=== PATIENT | female | born 1955 | race African-American/Black ===

== ENCOUNTER 2018-08-14 07:04 | Inpatient (IN) | payer OTHER, MEDICAID ==
[~2018-08-14] VITALS: Ht 162.6 cm; Wt 53.5 kg
[2018-08-14] MEDS ORDERED: KETOROLAC 30MG/ML VIAL IV STA (08:13)
[2018-08-14] MEDS ORDERED: ONDANSETRON HCL 4MG/2ML INJ IV STA (08:13)
[2018-08-14] MEDS ORDERED: SODIUM CHLORIDE 0.9% 1,000 ML IV ONE (08:13)
[2018-08-14 08:33] LABS: BASOPHILS % 0.8 % (0.0-2.0); EOSINOPHILS % 3.6 % (0.0-5.0); HEMATOCRIT. 40.5 % (36.0-48.0); LYMPHOCYTES % 37.6 % (20.0-50.0); MEAN CORPUSCULAR HEMOGLOBIN 30.5 pg (28.0-32.0); MEAN CORPUSCULAR VOLUME 88.2 fL (81.0-99.0); MEAN PLATELET VOLUME 7.8 fl (7.4-10.4); MONOCYTES % 6.5 % (2.0-8.0); NEUTROPHILS % 51.5 % (40.0-76.0); PLATELET 305 x1000/uL (130-400); RED BLOOD CELL COUNT 4.59 mill/uL (4.2-5.4); RED CELL DISTRIBUTION WIDTH 13.4 % (11.6-14.6)
[2018-08-14 08:39] LABS: CHLORIDE 107 mEq/L (98-107)
[2018-08-14 08:54] LABS: CLARITY URINE TURBID (CLEAR); COLOR URINE YELLOW (YELLOW); KETONES URINE NEGATIVE (NEGATIVE); LEUKOCYTE ESTERASE URINE NEGATIVE (NEGATIVE); NITRITE URINE NEGATIVE (NEGATIVE); OCCULT BLOOD URINE NEGATIVE (NEGATIVE); PH URINE 7.5 (4.5-8.0); PROTEIN URINE NEGATIVE (NEGATIVE); SPECIFIC GRAVITY URINE 1.014 (1.005-1.030); UROBILINOGEN URINE 0.2 E.U./dL (0.2-1.0)
[2018-08-14] MEDS ORDERED: MORPHINE SULFATE 4 MG/ML CPJ (NOT FOR IM USE) IV STA (11:23)
[2018-08-14] MEDS ORDERED: IBUPROFEN 600MG TABLET PO PRN (13:45)
[2018-08-14] MEDS ORDERED: DIATR MEGLU/DIATRIZOATE SOLN 30ML ONE (16:48)
[2018-08-14] MEDS ORDERED: LORAZEPAM 0.5MG TABLET PO PRN (20:30)
[2018-08-14] MEDS ORDERED: ACETAMINOPHEN 325MG TABLET PO PRN (20:30)
[2018-08-14] MEDS ORDERED: HYDROCODONE/ACETAMINOPHEN 10/325MG TABLET PO PRN (20:30)
[2018-08-14] MEDS ORDERED: TEMAZEPAM 15MG CAPSULE PO PRN (20:30)
[2018-08-14] MEDS ORDERED: HYDROMORPHONE HCL/PF 2MG/ML CPJ IV PRN (20:30)
[2018-08-14] MEDS ORDERED: MAGNESIUM/ALUMINUM HYDROXIDE/SIMETHICONE 30ML UDC PO PRN (20:30)
[2018-08-14] MEDS ORDERED: DIPHENHYDRAMINE 50MG/ML VIAL IV PRN (20:30)
[2018-08-14 20:55] VITALS: BP 155/62
[2018-08-14] MEDS ORDERED: DEXT 5%/0.45% NACL 1000ML 1,000 ML IV SCH (22:00)
[2018-08-14] MEDS: FAMOTIDINE 20MG/2ML VIAL IV SCH (22:00)
[2018-08-14] MEDS: KETOROLAC 30MG/ML VIAL IV PRN (22:26)
[2018-08-14] MEDS: ONDANSETRON HCL 4MG/2ML INJ IV PRN (22:39)
[2018-08-14 23:55] VITALS: BP 120/60
[2018-08-15 04:00] VITALS: BP 115/57
[2018-08-15 06:45] LABS: BASOPHILS % 0.6 % (0.0-2.0); EOSINOPHILS % 3.6 % (0.0-5.0); HEMATOCRIT. 39.6 % (36.0-48.0); HEMOGLOBIN. 13.5 g/dL (12.0-16.0); LYMPHOCYTES % 25.6 % (20.0-50.0); MEAN CORPUSCULAR HEMOGLOBIN 30.3 pg (28.0-32.0); MEAN CORPUSCULAR VOLUME 88.7 fL (81.0-99.0); MEAN PLATELET VOLUME 7.7 fl (7.4-10.4); MONOCYTES % 10.3 % (2.0-8.0); NEUTROPHILS % 59.9 % (40.0-76.0); PLATELET 284 x1000/uL (130-400); RED BLOOD CELL COUNT 4.46 mill/uL (4.2-5.4); RED CELL DISTRIBUTION WIDTH 13.6 % (11.6-14.6)
[2018-08-15] MEDS ORDERED: DIATR MEGLU/DIATRIZOATE SOLN 30ML PO NR (07:45)
[2018-08-15 08:00] VITALS: BP 117/53
[2018-08-15] MEDS: ONDANSETRON HCL 4MG/2ML INJ IV PRN ×2 (09:25→13:56)
[2018-08-15] MEDS: FAMOTIDINE 20MG/2ML VIAL IV SCH (09:25)
[2018-08-15 09:38] LABS: CHLORIDE 110 mEq/L (98-107)
[2018-08-15 09:47] LABS: PHOSPHORUS 3.1 mg/dL (2.5-4.9)
[2018-08-15] MEDS ORDERED: IOHEXOL-300 100 ML BOTTLE ONE (11:17)
[2018-08-15 12:00] VITALS: BP 142/65
[2018-08-15] MEDS: KETOROLAC 30MG/ML VIAL IV PRN (13:56)
[2018-08-15 16:00] VITALS: BP 134/71
[2018-08-15 17:47] VITALS: BP 134/71
== END 2018-08-15 18:51 | disposition home or self-care (01) | DRG 694 ==
LOC: ER 07:04 → EDSEX 07:04 → ENRESERV 15:11 → CANRESERV 15:11 → 8WST 15:56 → EDBEDREQSVC 16:09 → ENRESERV 20:22
PROVIDERS: ADMIT Internal Medicine; ATTEND Internal Medicine
DX: D49.89 Neoplasm of unspecified behavior of other specified sites (principal); F17.200 Nicotine dependence, unspecified, uncomplicated; K80.20 Calculus of gallbladder without cholecystitis without obstruction; Z80.9 Family history of malignant neoplasm, unspecified
CPT/HCPCS: 36415; 71045; 74177; 76700; 78227; 83735; 84100; 93005; 96361; 96374; 96375; 99285; A9537; J1885; J2270; J2405; J3490; J7030; Q9963; Q9967